=== PATIENT | female | born 1955 | race Caucasian/White ===

== ENCOUNTER 2020-04-29 07:25 | Day surgery (SDC) | payer OTHER, SELFPAY ==
[~2020-04-29] VITALS: Ht 154.9 cm; Wt 113.4 kg
[~2020-04-29 07:25] MED LIST: CEFAZOLIN SOD 1 GM in D5W 50 ML IV ONE
[2020-04-29] MEDS ORDERED: SUGAMMADEX SODIUM 200 MG/2 ML VIAL IV ONE (12:24)
[2020-04-29] MEDS ORDERED: ROCURONIUM BROMIDE 10 MG/ML (ZEMURON) IV ONE (12:24)
[2020-04-29] MEDS ORDERED: BUPIVACAINE /EPINEPHRINE/PF 0.25% 30 ML VIAL INJ ONE (12:24)
[2020-04-29] MEDS ORDERED: DEXAMETHASONE SOD PHOSPHATE 4 MG/ML VIAL IVP ONE (12:24)
[2020-04-29] MEDS ORDERED: fentaNYL CITRATE/PF 100 MCG/2 ML AMP IVP ONE (12:24)
[2020-04-29] MEDS ORDERED: HEPARIN SODIUM,PORCINE 10,000 UNIT/ML VIAL IV ONE (12:24)
[2020-04-29] MEDS ORDERED: NS IRRIG SOLN 1000 ML IR ONE (12:24)
[2020-04-29] MEDS ORDERED: LR 1,000 ML IV.SOLN IV ONE (12:24)
[2020-04-29] MEDS ORDERED: KETOROLAC TROMETHAMINE 30 MG VIAL IVP ONE (12:24)
[2020-04-29] MEDS ORDERED: ONDANSETRON HCL 4 MG/2 ML VIAL IVP ONE (12:24)
[2020-04-29] MEDS ORDERED: PROPOFOL 200MG/ 20ML VIAL (DIPRIVAN) IV ONE (12:24)
[2020-04-29] MEDS ORDERED: NS 1000 ML IV.SOLN IV ONE ×2 (12:24)
[2020-04-29] MEDS ORDERED: ISOFLURANE 15 MIN GAS INH ONE (12:24)
[2020-04-29] MEDS ORDERED: MIDAZOLAM HCL 5 MG/5 ML VIAL IVP ONE (12:24)
[2020-04-29] MEDS ORDERED: LR 1,000 ML IV SCH (13:30)
[2020-04-29] MEDS ORDERED: ONDANSETRON HCL 4 MG/2 ML VIAL IVP PRN (13:30)
[2020-04-29] MEDS ORDERED: LABETALOL 100 MG/ 20ML VIAL IVP PRN (13:30)
[2020-04-29] MEDS ORDERED: HYDROmorphone 1 MG INJ. 1 MG/ML AMPUL IVP PRN ×2 (13:30)
[2020-04-29] MEDS ORDERED: METOCLOPRAMIDE HCL 10 MG/2 ML VIAL IVP PRN (13:30)
[2020-04-29] MEDS ORDERED: MIDAZOLAM HCL 2 MG/2 ML VIAL (VERSED) IVP PRN (13:30)
[2020-04-29] MEDS ORDERED: MEPERIDINE HCL/PF 25 MG/ML DISP.SYRIN IVP PRN (13:30)
[2020-04-29] MEDS ORDERED: D5/0.45 NS 1,000 ML IV SCH (14:00)
[2020-04-29] MEDS ORDERED: HYDROmorphone 1 MG INJ. 1 MG/ML AMPUL ONE (15:00)
[2020-04-29 15:05] VITALS: BP_SYST 120
== END 2020-04-29 15:45 | disposition home or self-care (01) ==
LOC: SDS 07:25 → SMU 07:25 → SDS 15:45
PROVIDERS: ATTEND Colon & Rectal Surgery
DX: C78.5 Secondary malignant neoplasm of large intestine and rectum (principal); E66.01 Morbid (severe) obesity due to excess calories; K21.9 Gastro-esophageal reflux disease without esophagitis; C18.9 Malignant neoplasm of colon, unspecified; E11.9 Type 2 diabetes mellitus without complications; E78.5 Hyperlipidemia, unspecified; Z79.899 Other long term (current) drug therapy; Z20.828 Contact with and (suspected) exposure to other viral communicable diseases
CPT/HCPCS: 36561; 71045; 77001; 82962; C1788; C9399; J0690; J1100; J1170; J1644; J1885; J2250; J2405; J2704; J3010; J3490; J7030; J7060; J7120; U0003; 76000